=== PATIENT | male | born 1950 | race Caucasian/White ===

== ENCOUNTER 2019-01-28 11:23 | Emergency (ER) | payer MEDICARE, BC ==
--- NOTE | 2019-01-28 13:19 | EDM.PDOC ---
ED HPI GENERAL MEDICAL PROBLEM - General Chief Complaint: Respiratory Problem Stated Complaint: SOB Time Seen by Provider: 01/28/19 13:00 Source of Information: Reports: Patient, Old Records History Limitations: Reports: No Limitations - History of Present Illness INITIAL COMMENTS - FREE TEXT/NARRATIVE: 68 yo male called the clinic today for fatigue and dyspnea on exertion over the past about 3 weeks. He was told to come to the ER. He has no fever. He has no SOB at rest. Has no hx of CAD or CHF. His sx's began about the time he returned from [place] where he [place]. He doesn't recall ever having had an ECHO. Onset: Gradual Onset Date: 01/07/19 Duration: Week(s): (3), Getting Worse Location: Reports: Other (no pain) Severity: Moderate (fatigue) Improves with: Reports: Rest Worsens with: Reports: Other (exertion) Context: Reports: Other (See HPI) Associated Symptoms: Reports: Cough (rare), Shortness of Breath (with exertion) . 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 (see below) (none) - Related Data Allergies Allergy/AdvReac Type Severity Reaction Status Date / Time apple Allergy Shortness Verified 07/11/18 16:03 of Breath melon Allergy Shortness Verified 07/11/18 16:03 of Breath wheat Allergy Shortness Verified 07/11/18 16:03 of Breath Home Meds: Home Meds Albuterol Sulfate [Albuterol Sulfate HFA] 108 mcg IH QID PRN 02/07/14 [History] Allopurinol [Zyloprim] 100 mg PO DAILY 02/07/14 [History] LORazepam [Ativan] 0.5 mg PO PRN 02/07/14 [History] Multivitamin [Multi-Vitamin Daily] 1 tab PO DAILY 02/07/14 [History] diphenhydrAMINE [Benadryl] 25 mg PO Q6H PRN 02/07/14 [History] Indomethacin [Indocin] 25 mg PO TID 01/28/19 [History] Meclizine [Antivert] 25 mg PO TID PRN 01/28/19 [History] Pravastatin Sodium [Pravastatin (Pravachol)] 40 mg PO DAILY 01/28/19 [History] Verapamil [Calan SR] 240 mg PO DAILY 01/28/19 [History] Warfarin Sodium 01/28/19 [History] tiZANidine [Zanaflex] 4 mg PO TID 01/28/19 [History] Past Medical History Musculoskeletal History: Reports: Arthritis Other Hematologic History: FACTOR 5 DISORDER. - Past Surgical History Musculoskeletal Surgical History: Reports: Shoulder Surgery, Other (See Below) Other Musculoskeletal Surgeries/Procedures:: KNEE SURGERY Social & Family History - Tobacco Use Smoking Status *Q: Never Smoker - Caffeine Use Caffeine Use: Reports: Coffee - Recreational Drug Use Recreational Drug Use: No ED ROS GENERAL - Review of Systems Review Of Systems: See Below Constitutional: Reports: Malaise, Fatigue HEENT: Reports: No Symptoms Respiratory: Reports: Shortness of Breath (with exertion). Denies: Wheezing, Pleuritic Chest Pain, Cough, Sputum, Hemoptysis Cardiovascular: Reports: Dyspnea on Exertion. Denies: Chest Pain, Palpitations Endocrine: Reports: Fatigue GI/Abdominal: Reports: No Symptoms : Reports: No Symptoms Musculoskeletal: Reports: No Symptoms Skin: Reports: No Symptoms Neurological: Reports: No Symptoms Psychiatric: Reports: No Symptoms ED EXAM, GENERAL - Physical Exam Exam: See Below Exam Limited By: No Limitations General Appearance: Alert, WD/WN, No Apparent Distress Eye Exam: Bilateral Eye: Normal Inspection Ears: Normal External Exam, Normal Canal, Hearing Grossly Normal, Normal TMs Ear Exam: Bilateral Ear: Auricle Normal, Canal Normal, TM normal Nose: Normal Inspection, No Blood Throat/Mouth: Normal Inspection, Normal Lips, Normal Oropharynx, Normal Voice, No Airway Compromise Head: Atraumatic, Normocephalic Neck: Normal Inspection Respiratory/Chest: No Respiratory Distress, Lungs Clear, Normal Breath Sounds, No Accessory Muscle Use Cardiovascular: Regular Rate, Rhythm, No Edema, No Murmur GI/Abdominal: Normal Bowel Sounds, Soft, Non-Tender, No Distention, Other ( ventral hernia) Back Exam: Normal Inspection. No: CVA Tenderness (R), CVA Tenderness (L) Extremities: Normal Inspection, Normal Range of Motion, Non-Tender, No Pedal Edema Neurological: Alert, Oriented, CN II-XII Intact, Normal Cognition, No Motor/ Sensory Deficits Psychiatric: Normal Affect, Normal Mood Skin Exam: Warm, Dry, Intact, Normal Color, No Rash Lymphatic: No Adenopathy Course - Vital Signs Last Recorded V/S: Last Vital Signs Temp 35.7 C 01/28/19 12:15 Pulse 72 01/28/19 12:15 Resp 17 01/28/19 12:15 BP 149/91 H 01/28/19 12:15 Pulse Ox 97 01/28/19 12:15 - Orders/Labs/Meds Labs: Laboratory Tests 01/28/19 01/28/19 01/28/19 Range/Units 13:26 13:26 13:26 WBC 6.6 (4.5-11.0) K/uL RBC 5.04 (4.30-5.90) M/uL Hgb 16.4 H (12.0-15.0) g/dL Hct 48.4 (40.0-54.0) % MCV 96 (80-98) fL MCH 33 H (27-31) pg MCHC 34 (32-36) % Plt Count 189 (150-400) K/uL PT 21.7 H (9.5-12.0) sec INR 2.05 H D (0.80-1.20) Sodium 139 L (140-148) mmol/L Potassium 4.1 (3.6-5.2) mmol/L Chloride 103 (100-108) mmol/L Carbon Dioxide 27 (21-32) mmol/L Anion Gap 13.1 (5.0-14.0) mmol/L BUN 18 (7-18) mg/dL Creatinine 1.2 (0.8-1.3) mg/dL Est Cr Clr Drug Dosing 57.00 mL/min Estimated GFR (MDRD) > 60 (>60) Glucose 102 (74-106) mg/dL Calcium 8.9 (8.5-10.1) mg/dL Troponin I < 0.017 (0.000-0.056) ng/mL TSH, Ultra Sensitive 1.650 (0.358-3.740) uIU/mL Departure - Departure Time of Disposition: 14:02 Disposition: Home, Self-Care 01 Condition: Good Clinical Impression: GONGORA (dyspnea on exertion) Fatigue Qualifiers: Fatigue type: unspecified Qualified Code(s): R53.83 - Other fatigue - Discharge Information *PRESCRIPTION DRUG MONITORING PROGRAM REVIEWED*: No *COPY OF PRESCRIPTION DRUG MONITORING REPORT IN PATIENT RAFAEL: No Instructions: Shortness of Breath, Adult Referrals: Edin Jarrett PA [Primary Care Provider] - Forms: ED Department Discharge Additional Instructions: Follow up with cardiology. Return here for a worsening of your symptoms or chest pain in the interval while you are waiting.
== END 2019-01-28 14:24 | disposition home or self-care (01) ==
LOC: JP.ED 11:23
DX: R06.00 Dyspnea, unspecified (principal); R53.83 Other fatigue; M19.90 Unspecified osteoarthritis, unspecified site; D68.2 Hereditary deficiency of other clotting factors; Z91.018 Allergy to other foods; Z79.899 Other long term (current) drug therapy
CPT/HCPCS: 36415; 80048; 84443; 84484; 85027; 85610; 99284

== ENCOUNTER 2020-04-22 15:13 | Emergency (ER) | payer MEDICARE, BC ==
[2020-04-22] MEDS ORDERED: HYDROmorphone 0.5 MG/0.5 ML Syringe IVPUSH ONE (15:27)
--- NOTE | 2020-04-22 15:30 | EDM.PDOC ---
ED HPI GENERAL MEDICAL PROBLEM - General Chief Complaint: Back Pain or Injury Stated Complaint: BACK PAIN FROM FALL Time Seen by Provider: 04/22/20 15:15 Source of Information: Reports: Patient History Limitations: Reports: No Limitations - History of Present Illness INITIAL COMMENTS - FREE TEXT/NARRATIVE: 70-year-old male who was going down some stairs when he slipped and fell hard onto his left flank and left hip area about 1-1/2 hours ago. Since that time he has significant and intense sharp pain over the left lateral pelvis and left flank area into the lumbar spine. No weakness of the lower extremities or paresthesias, denies shortness of breath or pleuritic chest pain. He has chronic back issues. No head or neck pain or trauma. Onset: Sudden Duration: Hour(s): (Within the last 2 hours) Location: Reports: Abdomen, Back, Pelvis Left Lower Back Pain Score (Numeric/FACES): 10 - Related Data Allergies Allergy/AdvReac Type Severity Reaction Status Date / Time apple Allergy Shortness Verified 04/22/20 15:22 of Breath melon Allergy Shortness Verified 04/22/20 15:22 of Breath wheat Allergy Shortness Verified 04/22/20 15:22 of Breath Penicillins AdvReac Rash Verified 04/22/20 15:22 Home Meds: Home Meds Albuterol Sulfate [Albuterol Sulfate HFA] 108 mcg IH QID PRN 02/07/14 [History] Allopurinol [Zyloprim] 100 mg PO DAILY 02/07/14 [History] Multivitamin [Multi-Vitamin Daily] 1 tab PO DAILY 02/07/14 [History] diphenhydrAMINE [Benadryl] 25 mg PO Q6H PRN 02/07/14 [History] Indomethacin [Indocin] 25 mg PO TID 01/28/19 [History] Meclizine [Antivert] 25 mg PO TID PRN 01/28/19 [History] Pravastatin Sodium [Pravastatin (Pravachol)] 40 mg PO DAILY 01/28/19 [History] Verapamil [Calan SR] 240 mg PO DAILY 01/28/19 [History] Warfarin Sodium 2.5 mg PO DAILY 01/28/19 [History] tiZANidine [Zanaflex] 4 mg PO ASDIRECTED PRN 01/28/19 [History] Past Medical History Musculoskeletal History: Reports: Arthritis Other Hematologic History: FACTOR 5 DISORDER. - Past Surgical History Musculoskeletal Surgical History: Reports: Shoulder Surgery, Other (See Below) Other Musculoskeletal Surgeries/Procedures:: KNEE SURGERY Social & Family History - Caffeine Use Caffeine Use: Reports: Coffee ED ROS GENERAL - Review of Systems Review Of Systems: See Below Constitutional: Denies: Fever, Chills HEENT: Reports: No Symptoms Respiratory: Reports: No Symptoms Cardiovascular: Reports: No Symptoms GI/Abdominal: Reports: Abdominal Pain (Left lateral abdominal area is sore) Musculoskeletal: Reports: Back Pain Skin: Denies: Bruising ED EXAM,LOWER BACK PAIN/INJURY - Physical Exam Exam: See Below Exam Limited By: No Limitations General Appearance: Alert, Moderate Distress Eye Exam: Bilateral Eye: Normal Inspection Head: Atraumatic Neck: Supple, Non-Tender Respiratory/Chest: Lungs Clear Cardiovascular: Regular Rate, Rhythm GI/Abdominal: Soft, Tender (Reacts with some tenderness to palpation of the left lateral abdomen near the iliac crest but no guarding) Back Exam: Vertebral Tenderness (Intensely painful to any palpation over the left paralumbar area and paraspinous muscles, also marked increase in pain with any flexion of the left hip passive or active) Neurological: Alert, No Motor/Sensory Deficits, Oriented x 3 Skin Exam: Warm, Dry (No abrasion or bruising over the injured area) Course - Vital Signs Last Recorded V/S: Last Vital Signs Temp 98.7 F 04/22/20 15:36 Pulse 63 04/22/20 17:00 Resp 20 04/22/20 15:36 BP 148/84 H 04/22/20 17:00 Pulse Ox 99 04/22/20 15:36 - Orders/Labs/Meds Labs: Laboratory Tests 04/22/20 04/22/20 Range/Units 15:43 15:43 WBC 6.6 (4.5-11.0) K/uL RBC 4.70 (4.30-5.90) M/uL Hgb 15.3 H (12.0-15.0) g/dL Hct 45.4 (40.0-54.0) % MCV 97 (80-98) fL MCH 33 H (27-31) pg MCHC 34 (32-36) % Plt Count 189 (150-400) K/uL Neut % (Auto) 60 (36-66) % Lymph % (Auto) 31 (24-44) % [place] % (Auto) 8 H (2-6) % Eos % (Auto) 2 (2-4) % Baso % (Auto) 0 (0-1) % Sodium 140 (140-148) mmol/L Potassium 3.6 (3.6-5.2) mmol/L Chloride 104 (100-108) mmol/L Carbon Dioxide 21 (21-32) mmol/L Anion Gap 15.3 H (5.0-14.0) mmol/L BUN 20 H (7-18) mg/dL Creatinine 1.3 (0.8-1.3) mg/dL Est Cr Clr Drug Dosing 51.15 mL/min Estimated GFR (MDRD) 55 L (>60) Glucose 113 H (74-106) mg/dL Calcium 8.6 (8.5-10.1) mg/dL Meds: Medications Discontinued Medications Generic Name Dose Route Start Last Admin Trade Name Freq PRN Reason Stop Dose Admin Hydromorphone HCl 0.5 mg 04/22/20 15:27 04/22/20 15:32 Dilaudid IVPUSH 04/22/20 15:28 0.5 mg ONETIME ONE Administration Sodium Chloride 80 mls @ 3.5 mls/sec 04/22/20 15:45 04/22/20 16:19 Normal Saline IV 3.5 mls/sec ASDIRECTED DEON Administration Iopamidol 100 ml 04/22/20 15:35 04/22/20 16:19 Isovue-300 (61%) IV 04/22/20 15:36 100 ml ONETIME ONE Administration Ketorolac Tromethamine 30 mg 04/22/20 17:10 04/22/20 17:15 Toradol IVPUSH 04/22/20 17:11 30 mg ONETIME ONE Administration Sodium Chloride 10 ml 04/22/20 15:35 04/22/20 16:18 Saline Flush FLUSH 04/22/20 15:36 10 ml ONETIME ONE Administration - Re-Assessments/Exams Free Text/Narrative Re-Assessment/Exam: 04/22/20 17:48 Findings: Based on analysis of the cervicothoracic junction, this patient has 13 sets of ribs. The patient also has a transitional vertebral body at the lumbosacral junction. Based on this enumeration, not body is a partially lumbarized S1 The height of the vertebral bodies is normal. There is no fracture of the vertebral bodies, pedicles, spinous processes or facets. Using the above-mentioned enumeration, there is a minimally displaced left L2 transverse process fracture. There are mildly displaced right and left transverse process fractures of L3. There is a mildly displaced left transverse process fracture of L4 Impression: 1. There are transverse process fractures identified involving L2, L3 and L4 as described. Please review the comment regarding the enumeration of the vertebral bodies. After the CT report, the patient was given 30 mg of IV Toradol. Within 20 m inutes he was able to get up with a walker and ambulate with moderate discomfort. He wanted to try to go home, so was discharged with 20 doses of Percocet to take along with his regular medication of indomethacin. Recheck next week for reevaluation and consideration of physical therapy consultation. Departure - Departure Time of Disposition: 18:08 Disposition: Home, Self-Care 01 Clinical Impression: Multiple transverse process fractures - Discharge Information Instructions: Transverse Process Fracture Referrals: Saud Amador NP [Primary Care Provider] - Forms: ED Department Discharge Care Plan Goals: Take Indocin up to 3 times daily over the next 3 to 5 days, and add Percocet for stronger pain control if needed. Increase activity slowly as tolerated using a walker for assistance initially. Return anytime if worsening despite pain treatment, and recheck next week with your primary provider to discuss progress and possible physical therapy consultation or further evaluation.
[2020-04-22] MEDS ORDERED: Sodium Chloride 0.9% 10 ML Syringe FLUSH ONE (15:35)
[2020-04-22] MEDS ORDERED: Iopamidol 612 MG/ML 500 ML Multipack Bottle IV ONE (15:35)
[2020-04-22] MEDS ORDERED: Sodium Chloride 0.9% 80 ML IV SCH (15:45)
--- NOTE | 2020-04-22 16:56 | CRLCT ---
Indication: Trauma. Technique: CT examination lumbar spine was performed. This study was re-formatted from the chest abdomen and pelvis study performed the same day. Axial bone and soft tissue windows were reviewed. Sagittal and coronal reformatted imaging was performed. Comparison: I have reviewed limited portions of the chest abdomen and pelvis. Findings: Based on analysis of the cervicothoracic junction, this patient has 13 sets of ribs. The patient also has a transitional vertebral body at the lumbosacral junction. Based on this enumeration, not body is a partially lumbarized S1 The height of the vertebral bodies is normal. There is no fracture of the vertebral bodies, pedicles, spinous processes or facets. Using the above-mentioned enumeration, there is a minimally displaced left L2 transverse process fracture. There are mildly displaced right and left transverse process fractures of L3. There is a mildly displaced left transverse process fracture of L4 Impression: 1. There are transverse process fractures identified involving L2, L3 and L4 as described. Please review the comment regarding the enumeration of the vertebral bodies. Please note that all CT scans at this facility use dose modulation, iterative reconstruction, and/or weight-based dosing when appropriate to reduce radiation dose to as low as reasonably achievable. Dictated by Kris Pathak MD @ Apr 22 2020 4:44PM Signed by Dr. Kris Pathak @ Apr 22 2020 4:56PM
--- NOTE | 2020-04-22 17:06 | CRLCT ---
INDICATION: Pain after fall. Trauma. TECHNIQUE: Contiguous axial CT images of the chest, abdomen, and pelvis are acquired after the uneventful administration of IV contrast. Coronal and sagittal reformations generated reviewed. COMPARISON: None available. FINDINGS: No mediastinal hematoma. Normal heart size. No pericardial effusion. Normal caliber main pulmonary artery. Normal course and caliber of the thoracic aorta with minimal atherosclerosis. There is no aortic dissection or traumatic aortic injury identified in the chest. Minimal coronary artery calcifications. There is no mediastinal, axillary, or supraclavicular lymphadenopathy. Visualized portions of the thyroid are unremarkable. The esophagus is normal. There is a minimal dependent atelectasis in the dependent portions of the lungs bilaterally. There is no pleural effusion or hemothorax. No pneumothorax. There is some linear atelectasis or scarring in the left upper lobe without discrete nodule or mass. No liver lesion is identified. The gallbladder is normal. There is no evidence of traumatic injury to the liver or spleen. There is no hemoperitoneum. No pneumoperitoneum. Kidneys enhance symmetrically. No hydronephrosis or evidence of kidney injury. The adrenal glands are normal. The pancreas is normal. No bowel obstruction. The appendix is normal. There is no bowel obstruction or bowel wall thickening identified. Several phleboliths are noted in the pelvis. Urinary bladder is unremarkable. A few surgical clips are noted in the pelvis. Prostate size is within normal limits. There is mild atherosclerosis of the abdominal aorta. The proximal aspect of the SMA, celiac trunk, and bilateral renal arteries are widely patent. ASIM is patent. There is some mild mural thrombus in the mid abdominal aorta. The iliac arteries are widely patent. There is no adenopathy identified. Transitional anatomy. In keeping with the lumbar spine CT acquired earlier same day, there are small ribs on the L1 vertebral body. Partial lumbarization of S1. There is a nondisplaced left L2 transverse process fracture. Bilateral transverse process fractures at L3. Left L4 transverse process fracture. No listhesis. L5-S1 degenerative facet disease. No compression deformity in the thoracic or lumbar spine. No rib fracture. IMPRESSION: 1. Few minor vertebral appendage fractures in the lumbar spine. 2. Otherwise, no evidence of trauma in the chest/abdomen/pelvis. 3. Linear atelectasis or scarring in left upper lobe likely sequela of prior infection. Please note that all CT scans at this facility use dose modulation, iterative reconstruction, and/or weight-based dosing when appropriate to reduce radiation dose to as low as reasonably achievable. Dictated by Wenceslao Gagnon MD @ Apr 22 2020 4:51PM Signed by Dr. Wenceslao Gagnon @ Apr 22 2020 5:05PM
[2020-04-22] MEDS ORDERED: Ketorolac 30 MG/ML SDV IVPUSH ONE (17:10)
== END 2020-04-22 18:08 | disposition home or self-care (01) ==
LOC: JP.ED 15:13
DX: S32.029A Unspecified fracture of second lumbar vertebra, initial encounter for closed fracture (principal); S32.039A Unspecified fracture of third lumbar vertebra, initial encounter for closed fracture; S32.049A Unspecified fracture of fourth lumbar vertebra, initial encounter for closed fracture; Z91.018 Allergy to other foods; Z88.0 Allergy status to penicillin; Z79.899 Other long term (current) drug therapy; Z79.01 Long term (current) use of anticoagulants; W10.9XXA Fall (on) (from) unspecified stairs and steps, initial encounter; Y92.830 Public park as the place of occurrence of the external cause
CPT/HCPCS: 36415; 71260; 72131; 74177; 80048; 85025; 96374; 96375; 99284; J1170; J1885; J7050; Q9967

== ENCOUNTER 2020-05-18 09:46 | Emergency (ER) | payer MEDICARE, BC ==
[2020-05-18] MEDS ORDERED: Sodium Chloride 0.9% 10 ML Syringe FLUSH PRN (09:54)
[2020-05-18] MEDS ORDERED: Lactated Ringers 1,000 ML IV SCH (10:00)
--- NOTE | 2020-05-18 10:49 | EDM.PDOC ---
ED HPI GENERAL MEDICAL PROBLEM - General Chief Complaint: Respiratory Problem Stated Complaint: SOB, WEAKNESS, SHAKING Time Seen by Provider: 05/18/20 10:00 Source of Information: Reports: Patient History Limitations: Reports: No Limitations - History of Present Illness INITIAL COMMENTS - FREE TEXT/NARRATIVE: This is a 70-year-old who presents with concerns of shortness of breath and shaking. He was visiting his grandson today when his [id number] started to smoke. He has a history of asthma so he ran outside and took his inhaler. He reports since this time he is been having difficulty breathing. He also noticed shaking all over. He has been breathing quite fast. His grandson is sick and in the urgent care right now. Patient denies any chest pain. He denies any cough. No wheezing. No fevers or chills. No urinary symptoms. No abdominal pain. He has no history of panic attacks, denies that his grandsons medical condition is causing him anxiety. He was seen in primary care and referred to the ER. - Related Data Allergies Allergy/AdvReac Type Severity Reaction Status Date / Time apple Allergy Shortness Verified 04/22/20 15:22 of Breath melon Allergy Shortness Verified 04/22/20 15:22 of Breath wheat Allergy Shortness Verified 04/22/20 15:22 of Breath Penicillins AdvReac Rash Verified 04/22/20 15:22 Home Meds: Home Meds Albuterol Sulfate [Albuterol Sulfate HFA] 108 mcg IH QID PRN 02/07/14 [History] Allopurinol [Zyloprim] 100 mg PO DAILY 02/07/14 [History] Multivitamin [Multi-Vitamin Daily] 1 tab PO DAILY 02/07/14 [History] diphenhydrAMINE [Benadryl] 25 mg PO Q6H PRN 02/07/14 [History] Indomethacin [Indocin] 25 mg PO TID 01/28/19 [History] Meclizine [Antivert] 25 mg PO TID PRN 01/28/19 [History] Pravastatin Sodium [Pravastatin (Pravachol)] 40 mg PO DAILY 01/28/19 [History] Verapamil [Calan SR] 240 mg PO DAILY 01/28/19 [History] Warfarin Sodium 2.5 mg PO DAILY 01/28/19 [History] tiZANidine [Zanaflex] 4 mg PO ASDIRECTED PRN 01/28/19 [History] Warfarin [Coumadin] 3 mg PO ASDIRECTED 05/18/20 [History] Past Medical History HEENT History: Reports: Impaired Vision, Other (See Below) Other HEENT History: [place] Cardiovascular History: Reports: High Cholesterol, Hypertension, Other (See Below) Other Cardiovascular History: factor V Respiratory History: Reports: Asthma, Sleep Apnea Other Respiratory History: cpap Gastrointestinal History: Reports: None Musculoskeletal History: Reports: Arthritis Neurological History: Reports: None Endocrine/Metabolic History: Reports: Obesity/BMI 30+ Hematologic History: Reports: Anticoagulation Therapy Other Hematologic History: FACTOR 5 DISORDER. - Past Surgical History Head Surgeries/Procedures: Reports: None HEENT Surgical History: Reports: None Cardiovascular Surgical History: Reports: None Respiratory Surgical History: Reports: None GI Surgical History: Reports: Hernia, Inguinal Neurological Surgical History: Reports: None Musculoskeletal Surgical History: Reports: Shoulder Surgery, Other (See Below) Other Musculoskeletal Surgeries/Procedures:: KNEE SURGERY Dermatological Surgical History: Reports: None Social & Family History - Tobacco Use Smoking Status *Q: Never Smoker - Caffeine Use Caffeine Use: Reports: Coffee - Alcohol Use Days Per Week of Alcohol Use: 7 Number of Drinks Per Day: 1 Total Drinks Per Week: 7 - Recreational Drug Use Recreational Drug Use: No ED ROS GENERAL - Review of Systems Review Of Systems: See Below Constitutional: Reports: Chills HEENT: Reports: No Symptoms Respiratory: Reports: Shortness of Breath Cardiovascular: Reports: No Symptoms Endocrine: Reports: No Symptoms GI/Abdominal: Reports: No Symptoms : Reports: No Symptoms Musculoskeletal: Reports: No Symptoms Skin: Reports: No Symptoms Neurological: Reports: No Symptoms Psychiatric: Reports: No Symptoms Hematologic/Lymphatic: Reports: No Symptoms Immunologic: Reports: No Symptoms ED EXAM, GENERAL - Physical Exam Exam: See Below Exam Limited By: No Limitations General Appearance: No Apparent Distress Nose: Normal Inspection Throat/Mouth: Normal Inspection Head: Atraumatic, Normocephalic Neck: Full Range of Motion Respiratory/Chest: Lungs Clear, Other (tachypnic) GI/Abdominal: Soft, Non-Tender Back Exam: Normal Inspection Extremities: Normal Inspection, Non-Tender. No: Pedal Edema, Redness Neurological: Alert, Oriented Psychiatric: Normal Affect, Normal Mood Skin Exam: Warm, Dry Course - Vital Signs Last Recorded V/S: Last Vital Signs Temp 36.8 C 05/18/20 10:04 Pulse 65 05/18/20 10:04 Resp 23 H 05/18/20 10:04 BP 166/104 H 05/18/20 10:04 Pulse Ox 99 05/18/20 10:04 - Orders/Labs/Meds Orders: Active Orders 24 hr Category Date Time Status Blood Pressure Mgt: Sepsis [RC] Q15MX2 Care 05/18/20 09:56 Active EKG Documentation Completion [RC] ASDIRECTED Care 05/18/20 10:46 Active CULTURE BLOOD [BC] Urgent Lab 05/18/20 10:15 Received REFLEX LACTIC ACID YES OR NO [CHEM] Routine Lab 05/18/20 10:43 Received Lactated Ringers [Ringers, Lactated] 1,000 ml Med 05/18/20 10:00 Active IV ASDIRECTED Sodium Chloride 0.9% [Saline Flush] Med 05/18/20 09:54 Active 10 ml FLUSH ASDIRECTED PRN Blood Culture x2 Reflex Set [OM.PC] Urgent Oth 05/18/20 09:54 Ordered Saline Lock Insert [OM.PC] Stat Oth 05/18/20 09:54 Ordered Severe Sepsis Onset Time [OM.PC] Stat Oth 05/18/20 09:54 Ordered EKG 12 Lead [EK] Routine Ther 05/18/20 10:46 Ordered Medication Orders Lactated Ringer's (Ringers, Lactated) 1,000 mls @ 999 mls/hr IV ASDIRECTED DEON Sodium Chloride (Saline Flush) 10 ml FLUSH ASDIRECTED PRN PRN Reason: Keep Vein Open Labs: Laboratory Tests 05/18/20 05/18/20 05/18/20 Range/Units 10:15 10:15 10:15 WBC 7.6 (4.5-11.0) K/uL RBC 5.26 (4.30-5.90) M/uL Hgb 16.8 H (12.0-15.0) g/dL Hct 49.8 (40.0-54.0) % MCV 95 (80-98) fL MCH 32 H (27-31) pg MCHC 34 (32-36) % Plt Count 186 (150-400) K/uL Neut % (Auto) 45 (36-66) % Lymph % (Auto) 45 H (24-44) % [place] % (Auto) 8 H (2-6) % Eos % (Auto) 2 (2-4) % Baso % (Auto) 1 (0-1) % Sodium 140 (140-148) mmol/L Potassium 4.0 (3.6-5.2) mmol/L Chloride 105 (100-108) mmol/L Carbon Dioxide 20 L (21-32) mmol/L Anion Gap 19.0 H (5.0-14.0) mmol/L BUN 17 (7-18) mg/dL Creatinine 1.4 H (0.8-1.3) mg/dL Est Cr Clr Drug Dosing 47.50 mL/min Estimated GFR (MDRD) 50 L (>60) Glucose 100 (74-106) mg/dL Lactic Acid 3.1 H (0.4-2.0) mmol/L Calcium 9.3 (8.5-10.1) mg/dL Total Bilirubin 0.8 (0.2-1.0) mg/dL AST 23 (15-37) U/L ALT 36 (12-78) U/L Alkaline Phosphatase 59 (46-116) U/L Troponin I (0.000-0.056) ng/mL Total Protein 7.9 (6.4-8.2) g/dL Albumin 4.2 (3.4-5.0) g/dL Globulin 3.7 H (2.3-3.5) g/dL Albumin/Globulin Ratio 1.1 L (1.2-2.2) Urine Color (YELLOW) Urine Appearance (CLEAR) Urine pH (5.0-8.0) Ur Specific [place] (1.008-1.030) Urine Protein (NEGATIVE) mg/dL Urine Glucose (UA) (NEGATIVE) mg/dL Urine Ketones (NEGATIVE) mg/dL Urine Occult Blood (NEGATIVE) Urine Nitrite (NEGATIVE) Urine Bilirubin (NEGATIVE) Urine Urobilinogen (0.2-1.0) EU/dL Ur Leukocyte Esterase (NEGATIVE) Urine RBC (0-5) Urine WBC (0-5) Ur Epithelial Cells Amorphous Sediment Urine Bacteria Urine Mucus 05/18/20 05/18/20 05/18/20 Range/Units 11:51 12:35 12:35 WBC (4.5-11.0) K/uL RBC (4.30-5.90) M/uL Hgb (12.0-15.0) g/dL Hct (40.0-54.0) % MCV (80-98) fL MCH (27-31) pg MCHC (32-36) % Plt Count (150-400) K/uL Neut % (Auto) (36-66) % Lymph % (Auto) (24-44) % [place] % (Auto) (2-6) % Eos % (Auto) (2-4) % Baso % (Auto) (0-1) % Sodium (140-148) mmol/L Potassium (3.6-5.2) mmol/L Chloride (100-108) mmol/L Carbon Dioxide (21-32) mmol/L Anion Gap (5.0-14.0) mmol/L BUN (7-18) mg/dL Creatinine (0.8-1.3) mg/dL Est Cr Clr Drug Dosing mL/min Estimated GFR (MDRD) (>60) Glucose (74-106) mg/dL Lactic Acid 2.0 (0.4-2.0) mmol/L Calcium (8.5-10.1) mg/dL Total Bilirubin (0.2-1.0) mg/dL AST (15-37) U/L ALT (12-78) U/L Alkaline Phosphatase (46-116) U/L Troponin I < 0.017 (0.000-0.056) ng/mL Total Protein (6.4-8.2) g/dL Albumin (3.4-5.0) g/dL Globulin (2.3-3.5) g/dL Albumin/Globulin Ratio (1.2-2.2) Urine Color Yellow (YELLOW) Urine Appearance Slightly cloudy A (CLEAR) Urine pH 7.5 (5.0-8.0) Ur Specific [place] 1.020 (1.008-1.030) Urine Protein Negative (NEGATIVE) mg/dL Urine Glucose (UA) Negative (NEGATIVE) mg/dL Urine Ketones Negative (NEGATIVE) mg/dL Urine Occult Blood Negative (NEGATIVE) Urine Nitrite Negative (NEGATIVE) Urine Bilirubin Negative (NEGATIVE) Urine Urobilinogen 0.2 (0.2-1.0) EU/dL Ur Leukocyte Esterase Negative (NEGATIVE) Urine RBC Not seen (0-5) Urine WBC Not seen (0-5) Ur Epithelial Cells Not seen Amorphous Sediment Rare Urine Bacteria Not seen Urine Mucus Not seen Meds: Medications Generic Name Dose Route Start Last Admin Trade Name Lyric PRN Reason Stop Dose Admin Lactated Ringer's 1,000 mls @ 999 mls/hr 05/18/20 10:00 Ringers, Lactated IV ASDIRECTED DEON Sodium Chloride 10 ml 05/18/20 09:54 Saline Flush FLUSH ASDIRECTED PRN Keep Vein Open - Re-Assessments/Exams Free Text/Narrative Re-Assessment/Exam: 70-year-old male presents with concerns of shortness of breath and shaking chills. On exam here he is found of normal vitals with exception of tachypnea. His lungs are clear. The remainder of his exam is benign. When he initially came to the ER I was concerned that perhaps he was septic, we have initiated a sepsis work-up. However, upon evaluating him I am less convinced of this and wonder if anxiety is driving much of his symptoms, perhaps due to his grandson being evaluated in clinic. We going to do a septic work up, and obtain a chest x-ray. EKG is pending. PE seems unlikely. Hold off any antibiotics pending pending further eval. 05/18/20 10:47 Free Text/Narrative Re-Assessment/Exam: Labs initially with mildly elevated lactate, at 3, suspect of the accuracy of this and clinical significance. Lactate was 2.0 on recheck. Remainder of labs unremarkable. EKG was nonischemic. Patient was concerned of possible cardiac events we checked a troponin which was also negative. I do not think that ACS is likely. Imaging and labs otherwise not indicative of the etiology of his symptoms but I am suspect that this may have been a panic attack. Patient remained with normal vitals during observation in the ED. He is ambulatory and eating and now is completely asymptomatic. He is safe for discharge. 05/18/20 13:32 Departure - Departure Time of Disposition: 13:30 Disposition: Home, Self-Care 01 Clinical Impression: Shaking, Shortness of breath - Discharge Information Instructions: Shortness of Breath, Adult Referrals: Saud Amador, [employer] [Primary Care Provider] - Forms: ED Department Discharge Additional Instructions: Your work-up in the emergency room was reassuring that there is not an emergent process causing your symptoms. Your heart looks okay and the remainder of your labs are unremarkable, as discussed there is a very mild impairment of your renal function. You would be best served by avoiding indomethacin. Your symptoms may have been due to anxiety or panic attack. Please follow-up with your primary doctor as planned. Return to the emergency room for recurrent or worsening symptoms. Thank you for allowing us to care for you today. Sepsis Event Note (ED) - Evaluation Sepsis Screening Result: No Definite Risk - Focused Exam Vital Signs: Vital Signs Temp Pulse Resp BP Pulse Ox 05/18/20 10:04 36.8 C 65 23 H 166/104 H 99 05/18/20 10:02 166/104 H - My Orders Last 24 Hours: My Active Orders 05/18/20 09:54 Sodium Chloride 0.9% [Saline Flush] 10 ml FLUSH ASDIRECTED PRN Blood Culture x2 Reflex Set [OM.PC] Urgent Saline Lock Insert [OM.PC] Stat Severe Sepsis Onset Time [OM.PC] Stat 05/18/20 09:56 Blood Pressure Mgt: Sepsis [RC] Q15MX2 05/18/20 10:00 Lactated Ringers [Ringers, Lactated] 1,000 ml IV ASDIRECTED 05/18/20 10:15 CULTURE BLOOD [BC] Urgent 05/18/20 10:43 REFLEX LACTIC ACID YES OR NO [CHEM] Routine 05/18/20 10:46 EKG Documentation Completion [RC] ASDIRECTED EKG 12 Lead [EK] Routine - Assessment/Plan Last 24 Hours: My Active Orders 05/18/20 09:54 Sodium Chloride 0.9% [Saline Flush] 10 ml FLUSH ASDIRECTED PRN Blood Culture x2 Reflex Set [OM.PC] Urgent Saline Lock Insert [OM.PC] Stat Severe Sepsis Onset Time [OM.PC] Stat 05/18/20 09:56 Blood Pressure Mgt: Sepsis [RC] Q15MX2 05/18/20 10:00 Lactated Ringers [Ringers, Lactated] 1,000 ml IV ASDIRECTED 05/18/20 10:15 CULTURE BLOOD [BC] Urgent 05/18/20 10:43 REFLEX LACTIC ACID YES OR NO [CHEM] Routine 05/18/20 10:46 EKG Documentation Completion [RC] ASDIRECTED EKG 12 Lead [EK] Routine
--- NOTE | 2020-05-18 11:01 | CR ---
CHEST: 2 view CLINICAL HISTORY:Sepsis COMPARISON:04/22/2020 FINDINGS: The heart size, pulmonary vascularity and hilar structures are normal. No infiltrate effusion or pneumothorax is seen. There are atherosclerotic changes in the aorta. IMPRESSION: No acute cardiopulmonary process.
== END 2020-05-18 13:44 | disposition home or self-care (01) ==
LOC: JP.ED 09:46
DX: R06.02 Shortness of breath (principal); R25.1 Tremor, unspecified; I10 Essential (primary) hypertension; E78.00 Pure hypercholesterolemia, unspecified; J45.909 Unspecified asthma, uncomplicated; E66.9 Obesity, unspecified; Z68.31 Body mass index [BMI] 31.0-31.9, adult; Z79.01 Long term (current) use of anticoagulants; Z91.018 Allergy to other foods; Z88.0 Allergy status to penicillin; Z79.899 Other long term (current) drug therapy
CPT/HCPCS: 36415; 71046; 71046-26; 80053; 81001; 83605; 84484; 85025; 87040; 93005; 93010; 99284; 99285-25

== ENCOUNTER 2022-05-27 08:45 | Day surgery (SDC) | payer MEDICARE, BC ==
[2022-05-27] MEDS ORDERED: Sodium Chloride 0.9% 1,000 ML IV SCH (09:30)
[2022-05-27] MEDS ORDERED: Propofol 200 MG/20 ML SDV ONE (09:38)
[2022-05-27] MEDS ORDERED: fentaNYL 100 MCG/2 ML SDV ONE (09:38)
[2022-05-27] MEDS ORDERED: Midazolam 1 MG/ML 2 ML SDV ONE (09:38)
== END 2022-05-27 12:25 | disposition home or self-care (01) ==
LOC: JP.SDS 08:45
PROVIDERS: ATTEND Surgery
DX: Z12.11 Encounter for screening for malignant neoplasm of colon (principal); J45.909 Unspecified asthma, uncomplicated; I12.9 Hypertensive chronic kidney disease with stage 1 through stage 4 chronic kidney disease, or unspecified chronic kidney disease; N18.9 Chronic kidney disease, unspecified; E66.9 Obesity, unspecified; Z86.73 Personal history of transient ischemic attack (TIA), and cerebral infarction without residual deficits; Z68.29 Body mass index [BMI] 29.0-29.9, adult
CPT/HCPCS: G0121; J2250; J2704; J3010; J7030

== ENCOUNTER 2024-01-18 08:35 | Emergency (ER) | payer MEDICARE, BC ==
[2024-01-18 09:16] LABS: BASOPHILS ABSOLUTE AUTO 0.04 K/uL (0.00-0.10); BASOPHILS PERCENT AUTO 0.6 % (0.1-1.3); EOSINOPHILS ABSOLUTE AUTO 0.14 K/uL (0.00-0.40); EOSINOPHILS PERCENT AUTO 2.2 % (0.0-5.4); HEMATOCRIT 45.2 % (38.4-49.7); IMMATURE GRAN PERCENT AUTO 0.2 % (0.0-0.7); LYMPHOCYTES PERCENT AUTO 43.1 % (11.4-47.7); MEAN CORPUSCULAR HEMOGLOBIN 32.8 pg (31.6-35.5); MEAN CORPUSCULAR HGB CONC 35.4 g/dL (31.6-35.5); MEAN CORPUSCULAR VOLUME 92.6 fL (81.4-99.0); MONOCYTES PERCENT AUTO 9.2 % (3.3-12.6); NEUTROPHILS PERCENT AUTO 44.7 % (40.0-78.1); PLATELET COUNT,PLT 218 K/uL (130-375); RED BLOOD CELL COUNT 4.88 M/uL (4.14-5.76); WHITE BLOOD CELL COUNT,WBC 6.5 K/uL (3.2-11.0)
[2024-01-18 09:17] LABS: IMMATURE GRAN ABSOLUTE AUTO 0.01 K/uL (0.00-0.23)
[2024-01-18 09:25] LABS: INR 2.7; PROTHROMBIN TIME 25.8 sec (9.2-10.6); PTT,PARTIAL THROMBOPLSTIN TIME 39.6 sec (21.8-27.3)
[2024-01-18 09:28] LABS: APPEARANCE,URINE CLEAR (CLEAR); BILIRUBIN,URINE NEGATIVE (NEGATIVE); COLOR,URINE YELLOW (YELLOW); GLUCOSE,URINE NEGATIVE (NEGATIVE); KETONES,URINE NEGATIVE (NEGATIVE); LEUKOCYTE ESTERASE,URINE NEGATIVE (NEGATIVE); NITRITE,URINE NEGATIVE (NEGATIVE); OCCULT BLOOD,URINE NEGATIVE (NEGATIVE); PROTEIN,URINE NEGATIVE (NEGATIVE); UROBILINOGEN,URINE 0.2 EU/dL (0.2-1.0)
[2024-01-18 09:32] LABS: A/G RATIO 1.1 (1.2-2.2); ALANINE AMINOTRANSFERASE,ALT 40 U/L (12-78); ALBUMIN 3.9 g/dL (3.4-5.0); ALKALINE PHOSPHATASE 49 U/L (46-116); ASPARTATE AMNIOTRANSFERASE,AST 24 U/L (15-37); BILIRUBIN TOTAL 1.1 mg/dL (0.2-1.0); BLOOD UREA NITROGEN,BUN 18 mg/dL (7-18); CALCIUM 9.1 mg/dL (8.5-10.1); CARBON DIOXIDE,CO2 25 mmol/L (21-32); CHLORIDE,CL 104 mmol/L (100-108); CREATININE 1.5 mg/dL (0.8-1.3); EST CRCL DRUG DOSING (CG) 42.43 mL/min; ESTIMATED GFR 49 mL/min (>60); GLUCOSE RANDOM 96 mg/dL (74-106); MAGNESIUM 2.2 mg/dL (1.8-2.4); PHOSPHORUS 3.2 mg/dL (2.5-4.9); POTASSIUM,K 4.1 mmol/L (3.6-5.2); PRO B-TYPE NATRIUR PEPT,BNPPRO 61 pg/mL (5-125); PROTEIN TOTAL,TP 7.5 g/dL (6.4-8.2); SODIUM,NA 139 mmol/L (140-148); TROPONIN I HIGH SENSITIVITY 6.7 pg/mL (<=60.3)
[2024-01-18 09:34] LABS: ANION GAP 14.1 mmol/L (5.0-14.0); C-REACTIVE PROTEIN < 0.50 mg/dL (<0.50)
[2024-01-18 09:43] LABS: AMORPHOUS SEDIMENT,URINE NOT SEEN; BACTERIA,URINE NOT SEEN; EPITHELIAL CELLS,URINE NOT SEEN; MUCUS,URINE NOT SEEN; RBC,URINE NOT SEEN (0-5); WBC,URINE 0-5 (0-5)
[2024-01-18 09:44] LABS: AMPHETAMINES SCREEN, URINE NEGATIVE (NEGATIVE); BARBITURATE SCREEN,URINE NEGATIVE (NEGATIVE); BENZODIAZEPINES SCREEN,URINE NEGATIVE (NEGATIVE); METHADONE SCREEN, URINE NEGATIVE (NEGATIVE); METHAMPHETAMINES SCREEN, URINE NEGATIVE (NEGATIVE); OXYCODONE SCREEN,URINE NEGATIVE (NEGATIVE); PROPOXYPHENE SCREEN,URINE NEGATIVE (NEGATIVE); THC SCREEN,URINE 50 NG/ML NEGATIVE (NEGATIVE)
== END 2024-01-18 10:15 | disposition home or self-care (01) ==
LOC: JP.ED 08:35
DX: M79.10 Myalgia, unspecified site (principal); J45.909 Unspecified asthma, uncomplicated; E78.00 Pure hypercholesterolemia, unspecified; I12.9 Hypertensive chronic kidney disease with stage 1 through stage 4 chronic kidney disease, or unspecified chronic kidney disease; N18.9 Chronic kidney disease, unspecified; E66.9 Obesity, unspecified; Z91.018 Allergy to other foods; Z88.0 Allergy status to penicillin; Z79.899 Other long term (current) drug therapy; Z86.19 Personal history of other infectious and parasitic diseases; Z79.82 Long term (current) use of aspirin; Z79.51 Long term (current) use of inhaled steroids; Z68.30 Body mass index [BMI] 30.0-30.9, adult
CPT/HCPCS: 36415; 71046; 71046-26; 80053; 80305-QW; 81001; 83735; 83880; 84100; 84484; 85025; 85379; 85610; 85730; 86140; 93005; 93010; 99283; 99285